=== PATIENT | female | born 1960 | race Caucasian/White ===

== ENCOUNTER 2020-12-15 15:38 | Emergency (ER) | payer OTHER, SELFPAY ==
[2020-12-15] VITALS (15 sets, daily range): BP systolic 161–209; BP diastolic 65–103; PULSE 92–118; RESP 16–23; TEMP 36.4; O2SAT 99–100
--- NOTE | ~2020-12-15 | XR_ITS ---
EXAMINATION: XR chest 2V DATE: 12/15/2020 18:08 INDICATION: Hypertension. TECHNIQUE: Frontal and lateral views of the chest were obtained. COMPARISON: None. FINDINGS: The chest demonstrates clear lungs without pneumonia, pleural effusion, or pneumothorax. Th e heart size is normal. IMPRESSION: 1. No acute cardiopulmonary disease. Reviewed, dictated and finalized at location A.
--- NOTE | 2020-12-15 15:45 | ECG_ITS ---
Measurements Intervals [place] Rate: 113 P: [place]: 0 QRS: 6 QRSD: 87 T: 83 QT: 327 QTc: 449 Interpretive Statements SINUS TACHYCARDIA DELAYED PRECORDIAL R/S TRANSITION BORDERLINE ST-T WAVE ABNORMALITY- HIGH LATERAL LEADS ABNORMAL ECG Electronically Signed On 12-15-2020 16:16:06 CDT by Gordon Rg D.O.
[2020-12-15] MEDS: amLODIPine BESYLATE 5 MG TABLET 10 MG PO (17:32)
[2020-12-15 17:40] LABS: Basophils Absolute Auto 0.1 K/mm3 (0.0-0.1); Basophils Percent Auto 0.9 % (0.2-1.2); Eosinophils Absolute Auto 0.1 K/mm3 (0-0.3); Hematocrit 47.3 % (37.0-47.0); Hemoglobin 15.6 g/dL (12.0-15.0); Immature Granulocyte Absolute 0.04 K/mm3 (0.00-0.031); Immature Granulocyte Percent A 0.4 % (0-0.5); Immature Platelet Fraction Pct 3.5 % (0.9-11.2); Lymphocytes Percent Auto 17.3 % (18.3-44.2); Mean Corpuscular Hemoglobin 29.1 pg (26-34); Mean Corpuscular Volume 88.2 fl (80-100); Mean Platelet Volume 10.3 fl (7.4-10.4); Monocytes Absolute Auto 0.7 K/mm3 (0.1-0.6); Monocytes Percent Auto 6.5 % (2.6-8.5); Neutrophils Absolute Auto 7.7 K/mm3 (1.3-6.7); Neutrophils Percent Auto 73.9 % (45.5-73.1); Platelet Count Result 312 k/mm3 (150-375); Red Blood Count 5.36 M/mm3 (4.2-5.4); White Blood Count 10.4 K/mm3 (4.5-10.0)
--- NOTE | 2020-12-15 17:41 | ED.GENADULT ---
HPI - General Adult General Chief complaint: Recheck/Abnormal Lab/Rx Stated complaint: high bp Time Seen by Provider: 12/15/20 17:20 Source: patient History of Present Illness HPI narrative: Patient is a 60 y/o female complaining not feeling well for about 1 year. She states that she has intermittent sharp pain in various parts of her body. She also feels no energy. She has not pain at time. She has no SOB. She was seen at a clinic earlier today for check up and she was told that her BP is too high and she was sent here. Related Data Allergies Allergy/AdvReac Type Severity Reaction Status Date / Time Penicillins Allergy Unknown Verified 12/15/20 17:34 Review of Systems Constitutional: Constitutional: Reports as per HPI, Denies chills, Reports fatigue, Denies fever(s), Denies headache(s), Reports malaise and Denies weakness Eyes: Eyes: Denies blurry vision ENT: Denies headache(s) and Denies neck pain Cardiovascular: Cardiovascular: Denies chest pain and Denies dyspnea Respiratory: Respiratory: Denies cough and Denies dyspnea Gastrointestinal: Gastrointestinal: Denies abdominal pain, Denies diarrhea, Denies nausea and Denies vomiting Genitourinary: Genitourinary: Denies hematuria and Denies dysuria Musculoskeletal: Musculoskeletal: Denies back pain, Reports myalgias and Denies neck pain Neurologic: Denies headache(s) and Denies weakness PMFSH Social History Social History Gender identity (if verbalized by the patient): Female Exam Const: General: no acute distress and well developed Orientation/consciousness: oriented to person, oriented to place, oriented to time and patient oriented x3 HENMT: Head: normocephalic Ears: external ears normal General nose exam: Normal external nose present Eyes: General: appearance normal, both eyes and all related structures Conjunctivae: conjunctivae normal Neck: Neck: normal visual inspection and full ROM Chest: Chest palpation & inspection: normal inspection of the chest and no tenderness Resp: Effort & Inspection: normal respiratory effort Auscultation: clear to auscultation bilaterally Cardio: Rate: regular rate Rhythm: regular rhythm GI: GI Palp: No abdominal tenderness and Yes Soft to palpation Skin: General skin exam: normal color and turgor normal Neuro: General: oriented to person, oriented to place, oriented to time and patient oriented x3 Cognition (Neuro): normal cognition Extrem: General: normal to inspection, full ROM and no pedal edema Psych: Appearance: grossly normal Mental Status: mental status grossly normal Affect: normal affect Course Vital Signs Vital signs: Vital Signs Temperature 36.4 C L 12/15/20 15:40 Pulse Rate 118 H 12/15/20 15:40 Respiratory Rate 20 12/15/20 15:40 Blood Pressure 209/103 H 12/15/20 15:40 Pulse Oximetry 100 12/15/20 15:40 Temperature 36.4 C L 12/15/20 15:40 Pulse Rate 92 12/15/20 21:01 Respiratory Rate 17 12/15/20 21:01 Blood Pressure 171/73 H 12/15/20 21:01 Pulse Oximetry 99 12/15/20 21:01 Medical Decision Making Vital Signs Vital Signs: Vital Signs Temperature 36.4 C L 12/15/20 15:40 Pulse Rate 118 H 12/15/20 15:40 Respiratory Rate 20 12/15/20 15:40 Blood Pressure 209/103 H 12/15/20 15:40 Pulse Oximetry 100 12/15/20 15:40 Temperature 36.4 C L 12/15/20 15:40 Pulse Rate 92 12/15/20 21:01 Respiratory Rate 17 12/15/20 21:01 Blood Pressure 171/73 H 12/15/20 21:01 Pulse Oximetry 99 12/15/20 21:01 Lab Data Result diagrams: 12/15/20 17:32 12/15/20 17:32 Labs: Lab Results 12/15/20 12/15/20 12/15/20 Range/Units 17:32 17:32 17:32 WBC 10.4 H (4.5-10.0) K/mm3 RBC 5.36 (4.2-5.4) M/mm3 Hgb 15.6 H (12.0-15.0) g/dL Hct 47.3 H (37.0-47.0) % MCV 88.2 (80-100) fl MCH 29.1 (26-34) pg MCHC 33.0 (32-36) g/dl RDW 12.0 (11.5
[2020-12-15 18:10] LABS: Alanine Aminotransferase 27 U/L (4-35); Albumin Level 4.9 g/dL (3.5-5.1); Alkaline Phosphatase 89 U/L (38-126); Anion Gap 14 mmol/L (8-16); Aspartate Amino Transferase 31 U/L (14-36); Blood Urea Nitrogen 12 mg/dL (7-17); Calcium 9.7 mg/dL (8.4-10.2); Carbon Dioxide 26 mmol/L (22-30); Chloride 98 mmol/L (98-107); Estimated CRCL calculation 139 ml/min; Estimated Glomerular Filt Rate > 60; Glucose 227 mg/dL (65-105); Potassium 3.8 mmol/L (3.4-5.0); Sodium 138 mmol/L (137-145)
[2020-12-15] MEDS: hydroCHLOROthiazide 25 MG TABLET PO (18:23)
[2020-12-15 18:32] LABS: Troponin I < 0.012 ng/mL (0.000-0.034)
[2020-12-15] MEDS: lisinopriL 20 MG TABLET PO (20:23)
[2020-12-15 21:58] LABS: Hemoglobin A1C 10.2 % (<5.7)
== END 2020-12-15 21:50 | disposition home or self-care (01) ==
PROVIDERS: Emergency Provider Emergency Medicine; PCP Physician Assistant
DX: I10 Essential (primary) hypertension (principal); E11.9 Type 2 diabetes mellitus without complications
CPT/HCPCS: 36415; 71046; 80053; 83036; 84443; 84484; 85025; 85055; 93005; 99284; A9270

== ENCOUNTER 2021-01-06 07:43 | Outpatient (CLI) | payer OTHER, SELFPAY ==
--- NOTE | ~2021-01-06 | US_ITS ---
US abdomen complete DATE: 01/06/2021 08:14 INDICATION: Abdominal pain, cramping TECHNIQUE: Real-time imaging of the abdomen, Doppler analysis COMPARISON: None FINDINGS: The pancreatic tail is not well demonstrated. The liver and pancreas otherwise appear unrem arkable. Normal hepatopedal portal venous flow direction. No evidence of gallstones or gallbladder wall thickening, pericholecystic fluid collection. Negative sonographic Wilburn's sign. The common bile duct measures 5 mm, normal. Right kidney 11.6 cm length, left kidney 11.9 cm length. No renal mass lesion or hydronephrosis. Normal size of the spleen. Normal caliber of the abdominal aorta. The inferior vena cava is unremarkable. IMPRESSION: No significant abnormality Reviewed, dictated and finalized at Location [facility]. Reviewed, dictated and finalized at location B. IMPRESSION: No significant abnormality
== END 2021-01-06 07:44 ==
LOC: MICIMG 07:45
PROVIDERS: PCP Physician Assistant; Visit Provider Physician Assistant
DX: R10.9 Unspecified abdominal pain (principal)
CPT/HCPCS: 76700

== ENCOUNTER 2021-02-02 09:36 | Outpatient (CLI) | payer OTHER, SELFPAY ==
--- NOTE | ~2021-02-02 | NM_ITS ---
EXAMINATION: NM hepatobiliary w pharm DATE: 02/02/2021 11:38 INDICATION: Right upper quadrant abdominal pain. COMPARISON: Ultrasound 01/06/2021 TECHNIQUE: 4.9 mCi Tc-99m mebrofenin (Choletec) was administered intravenously. Scintigraphic images of the abdomen were obtained for one hour. Then, 1.8 mcg sincalide (Kinevac) IV was administered, an d imaging was continued for 30 minutes. FINDINGS: There is normal clearance of radiotracer from the blood pool. There is homogeneous tracer u ptake by the liver. Activity progresses to the bowel and gallbladder. Gallbladder ejection fraction (GBEF) was 45%. Note that most patients with gallbladder dysfunction have GBEF < 35%, which overlaps with the broad normal range of 10-90%. IMPRESSION: 1. Normal hepatobiliary scintigraphy. Reviewed, dictated and finalized at location A.
== END 2021-02-02 09:37 | disposition home or self-care (01) ==
LOC: ANHIMG 09:40
PROVIDERS: PCP Physician Assistant; Visit Provider Physician Assistant
DX: R10.9 Unspecified abdominal pain (principal)
CPT/HCPCS: 78227; A9537; J2805